=== PATIENT | female | born 1980 | race Caucasian/White ===

== ENCOUNTER → 2018-12-24 13:55 | Outpatient (CLI) | payer OTHER, SELFPAY ==
--- NOTE | 2018-12-24 | DI.MG.S_ITS ---
BILATERAL DIGITAL SCREENING MAMMOGRAM 3D/2D WITH CAD: 12/24/2018 CLINICAL: Routine screening. Baseline exam. Family history of breast cancer. No prior exams were available for comparison. The tissue of both breasts is heterogeneously dense. This may lower the sensitivity of mammography. Current study was also evaluated with a Computer Aided Detection (CAD) system. There is a 0.9 cm oval focal asymmetry in the right breast at 11 o'clock middle depth. There also is possible architectural distortion in the right breast middle depth medial region seen on the craniocaudal view only. No other significant masses, calcifications, or other findings are seen in either breast. IMPRESSION: INCOMPLETE: NEEDS ADDITIONAL IMAGING EVALUATION The 0.9 cm oval focal asymmetry in the right breast at 11 o'clock middle depth is indeterminate. Additional views with possible ultrasound are recommended. The possible architectural distortion in the right breast middle depth medial region seen on the craniocaudal view only is indeterminate. Additional views with possible ultrasound are recommended. This exam was interpreted at Station ID: [id number]. NOTE: For mammograms, a report in lay terms will be sent to the patient. Approximately 15% of breast malignancies will not be visualized mammographically. In the management of a palpable breast mass, a negative mammogram must not discourage biopsy of a clinically suspicious lesion. Electronically Signed By: Jey santiago/flor:12/25/2018 13:22:20 letter sent: Additional Imaging Needed ACR BI-RADS Category 0: Incomplete [id number]
== END ==
PROVIDERS: Family Provider Family Medicine; PCP Family Medicine; Visit Provider Family Medicine
DX: Z12.31 Encounter for screening mammogram for malignant neoplasm of breast (principal); Z80.3 Family history of malignant neoplasm of breast
CPT/HCPCS: 77063; 77067

== ENCOUNTER → 2019-01-20 08:43 | Outpatient (CLI) | payer OTHER, SELFPAY ==
--- NOTE | 2019-01-20 | DI.MG.S_ITS ---
UNILATERAL RIGHT DIGITAL DIAGNOSTIC MAMMOGRAM 3D/2D WITH ADDITIONAL VIEWS: 01/20/2019 CLINICAL: Additional evaluation requested from prior study. Comparison is made to exam dated: 12/24/2018 [facility]. The tissue of right breast is heterogeneously dense. This may lower the sensitivity of mammography. Previously identified 0.9 cm oval focal asymmetry in the superior lateral right breast (described as being at 11 o'clock middle depth on comparison screening mammograms of 12/24/18 but localizes closer to 9-10 o'clock middle depth on additional diagnostic views performed today 01/20/19) persists with additional views. Previously identified possible architectural distortion in the right breast middle depth medial region seen on the craniocaudal view only on comparison screening mammograms of 12/24/18 persists with additional views. IMPRESSION: INCOMPLETE: NEEDS ADDITIONAL IMAGING EVALUATION Previously identified 0.9 cm oval focal asymmetry in the superior lateral right breast (described as being at 11 o'clock middle depth on comparison screening mammograms of 12/24/18 but localizes closer to 9-10 o'clock middle depth on additional diagnostic views performed today 01/20/19) persists with additional views. A targeted ultrasound is recommended for further evaluation, and will be performed immediately following this exam. Previously identified possible architectural distortion in the right breast middle depth medial region seen on the craniocaudal view only on comparison screening mammograms of 12/24/18 persists with additional views. A targeted ultrasound is recommended for further evaluation, and will be performed immediately following this exam. This exam was interpreted at Station ID: [id number]. NOTE: For mammograms, a report in lay terms will be sent to the patient. Approximately 15% of breast malignancies will not be visualized mammographically. In the management of a palpable breast mass, a negative mammogram must not discourage biopsy of a clinically suspicious lesion. Electronically Signed By: Terry Allen M.D. ecl/:01/20/2019 09:54:48 ACR BI-RADS Category 0: Incomplete 3340F
--- NOTE | 2019-01-20 | DI.US.S_ITS ---
LIMITED ULTRASOUND OF RIGHT BREAST: 01/20/2019 CLINICAL: Patient returns today to evaluate a focal asymmetry and architectual distortion in the right breast. Of note, the patient describes a history of medial right breast mastitis while nursing in the past. Comparison is made to exams dated: 01/20/2019 mammogram and 12/24/2018 mammogram - [facility]. Color flow ultrasound of the right breast upper inner, lower inner, and and upper outer quadrants regions was performed. Hagen scale images of the real-time examination were reviewed. There is a 1.0 x 0.8 x 0.5 cm oval circumscribed hypoechoic mass demonstrating increased vascularity in the right breast at 9:30 position 9 cm from the nipple. This appears to correlate with the focal asymmetry described on comparison screening and diagnostic mammography. There is no ultrasound correlate for the architectural distortion within the medial right breast described on comparison screening and diagnostic mammography. IMPRESSION: SUSPICIOUS OF MALIGNANCY 1. No ultrasound correlate for the architectural distortion within the medial right breast described on comparison screening and diagnostic mammography. A tomosynthesis or stereotactic guided biopsy is recommended for further evaluation. 2. 1.0 x 0.8 x 0.5 cm hypoechoic mass demonstrating increased vascularity in the right breast 9:30 position 9 cm from the nipple. This may represent a fibroadenoma or lymph node, but an ultrasound guided biopsy is recommended given the increased vascularity and the medial right breast architectural distortion described above. These results and recommendations were discussed with the patient at the time of the exam by Dr. Allen by telephone at approximately 9:45 am on 01/20/19. This exam was interpreted at Station ID: [id number]. Electronically Signed By: Terry Allen M.D. ecl/:01/20/2019 10:10:06 letter sent: Biopsy Required Ultrasound BI-RADS: 4b Moderate suspicion of malignancy
== END ==
PROVIDERS: Family Provider Family Medicine; PCP Family Medicine; Visit Provider Family Medicine
DX: R92.8 Other abnormal and inconclusive findings on diagnostic imaging of breast (principal); N63.11 Unspecified lump in the right breast, upper outer quadrant; N64.89 Other specified disorders of breast
CPT/HCPCS: 76642; 77065; G0279

== ENCOUNTER 2019-04-11 06:56 | Day surgery (SDC) | payer OTHER, SELFPAY ==
[2019-04-10 08:49] VITALS: BMI 30.7
[2019-04-11] VITALS (9 sets, daily range): BP systolic 110–121; BP diastolic 61–80; PULSE 70–89; RESP 10–17; TEMP 36.6; O2SAT 91–100; BMI 31.1
--- NOTE | 2019-04-11 | DI.MG.S_ITS ---
SPECIMEN: 04/11/2019 CLINICAL: Right breast specimen. Correlation is made to exams dated: 02/16/2019 stereotactic biopsy and 02/16/2019 mammogram - Breast [facility]. The specimen from the OR containes the area of clinical concern, the small biopsy localization clip, and the localization wire placed earlier same day to assist in surgical guidance to the site of lumpectomy. IMPRESSION: SPECIMEN Successful surgical excision of the area of clinical concern. This exam was interpreted at Station ID: [id number]. Tr Avina M.D. [facility]/:04/12/2019 14:04:52
--- NOTE | 2019-04-11 | PATH_ITS ---
[facility] Accession Number: [id number] . 01 Material submitted: . breast - RIGHT BREAST . 01 Clinical history: . SHORT STITCH SUPERIOR, LONG STITCH LATERAL . 01 Diagnosis: Right Breast, Lumpectomy: Breast parenchyma with biopsy site changes/suture granuloma and associated fibrosis/scarring. Background breast with focal pseudoangiomatous hyperplasia, and fibrocystic changes consisting of columnar cell change/columnar cell hyperplasia, focal usual ductal hyperplasia, apocrine metaplasia, microcysts, and stromal fibrosis. Negative for atypia, carcinoma in situ, and malignancy. [facility] 04/14/2019 1025 Local . 01 Electronically signed: . Yoanna Guajardo MD, Pathologist NPI- [id number] . 01 Gross description: . Received in formalin, labeled with the patient's name and right breast lumpectomy. Specimen: Right breast lumpectomy. Weight: 44 grams. Measurement: 7.3 cm medial to lateral, 4.0 to 6.2 cm anterior to posterior, 2.7 cm superior to inferior. Skin Ellipse: Absent. Wire: Present, penetrating at the medial side and terminating at the lateral side. Margins: Anterior-purple; posterior-black; superior-blue; inferior-green; medial-yellow; lateral-orange; previously oriented (short stitch-superior, long stitch-lateral). Sliced: Sectioned from lateral to medial, 14 slices. Approximately 75% of the specimen is submitted. Lesions: A distinct mass is not identified; red-brown hemorrhagic biopsy changes are present within slices 4-7, measuring 2.5 x 1.2 x 1.0 cm overall, 0.2 cm to the superior margin, 1.1 cm to the inferior margin, 1.5 cm to the anterior margin, 4.2 cm to the posterior margin, 1.5 cm to the lateral margin, 3.6 cm to the medial margin. A biopsy clip is not identified. The hemorrhagic area is entirely submitted. Other: The remaining specimen consists of yellow and pale cervantes fibrofatty breast tissue, 40% fibrous, 60% fatty, with occasional fibroglandular densities. No other lesions identified. Fixation Time: The specimen was placed in formalin at 1112 on 04/11/2019 for a total fixation time of 24 hours 1 minute. Summary of Sections: A1: Slice 1, lateral margin, perpendicular, four pieces. A2-3: Slice 2, patient access representative, including anterior and posterior margins, one piece each. A4: Slice 3, including superior, inferior, anterior margins, one piece. A5: Slice 3, patient access representative, including posterior margin, one piece. A6: Slice 4, including superior, inferior, anterior margin, one piece. A7: Slice 4, including posterior margin, one piece. A8-10: Slice 5, trisected and entirely submitted, one piece each. A11-13: Slice 6, [id number] and entirely submitted, one piece each. A14-16: Slice 7, trisected and entirely submitted, one piece each. A17-18: Slice 8, bisected into superior and inferior pieces and entirely submitted, one piece each. A19-20: Slice 9, bisected into superior and inferior pieces and entirely submitted, one piece each. A21: Slice 10, patient access representative, including posterior margin, one piece. A22: Slice 12, patient access representative, including anterior margin, one piece. A23: Slice 14, medial margin, perpendicular, three pieces. ([id number]) Additional sections are submitted on 04/13/2019 at 12:42 p.m; specimen now is entirely submitted. A24-25: Slice 1, perpendicular, multiple pieces. A26: Remainder of slice 2, one piece. A27: Remainder of slice 3, one piece. A28: Remainder of slice 4, one piece. A29: Remainder of slice 10, one piece. A30-31: Slice 11, bisected, one piece each. A32: Remainder of slice 12, one piece. A33-34: Slice 13, bisected, one piece each. A25-37: Slice 14, perpendicular, multiple pieces. ([id number]) /MRV 04/14/2019 0958 Local . 01 Microscopic: . Microcalcifications are not present. Specimen is entirely submitted. . 01 Pathologist provided ICD-10: N64.89 . 01 CPT . 561268 Performed at: 01 [facility] [address] [place] [address] [id number] MD Kris Olguin MD Phone: [phone]
--- NOTE | 2019-04-11 09:30 | DI.MG.S_ITS ---
DIGITAL MAMMOGRAPHY GUIDED WIRE LOCALIZATION RIGHT BREAST WITH POST MAMMOGRAPHIC IMAGING AND RADIOGRAPHIC SPECIMEN IMAGING- POST-NEEDLE BIOPSY: 04/11/2019 CLINICAL: Right breast cancer. Wire localization. Correlation is made to exams dated: 02/16/2019 stereotactic biopsy, 02/16/2019 mammogram - [facility], and 01/20/2019 mammogram [facility]. A wire localization using digital mammography guidance was performed for the concerning marker clip located in the right breast at 3 o'clock posterior depth. This was described on the previous mammography report. The skin was prepped in the usual manner. Local anesthetic was administered to the access site. The localization was approached from the medial aspect. A J-hook wire was inserted adjacent to the marker through an introducer device under digital mammography guidance. A sterile dressing was applied to the access site. Post placement mammographic imaging demonstrates the tip passes through adjacent to the marker. IMPRESSION: WIRE LOCALIZATION Wire localization for the marker clip in the right breast at 3 o'clock posterior depth was successful. The imaged specimen includes the lesion, a biopsy clip, and the distal portion of the localization wire. A specimen radiograph was obtained. This exam was interpreted at Station ID: [id number]. Tr Avina M.D. [facility]/:04/12/2019 14:01:04
--- NOTE | 2019-04-11 09:43 | PM.PREOP ---
Pre-operative Note Interval Note History & Physical reviewed/Exam performed by Physician: Yes Changes to H&P: No
[2019-04-11] MEDS: LACTATED RINGERS 1,000 ML 42 ML IV (09:44)
[2019-04-11] MEDS: CLINDAMYCIN 900 MG/50 ML PIGGYBACK 50 MG IV (09:57)
--- NOTE | 2019-04-11 10:20 | SUR.OPER ---
Supine on padded OR bed, head on pillow, arms secured on padded arm boards at <90 degrees abduction, legs uncrossed, safety belt at thigh, tape over blanket over lower legs.
[2019-04-11] MEDS: BUPIVACAINE 0.25% (PF) VIAL 30 ML INJ (10:31)
--- NOTE | 2019-04-11 11:11 | PM.OP.1 ---
Operative Date/Time/Diagnoses Date of procedure: 04/11/19 Time of procedure: 11:12 Pre-op diagnosis: radial scar Post-op diagnosis: same Procedure & Clinicians Procedure: Right needle-guided lumpectomy Same procedure as scheduled: Yes Indications: 39-year-old female with a right mammographic abnormality who underwent a needle biopsy which demonstrated radial scar at the approximately 3 o'clock position Surgeon: Gil Brand Anesthesia Type: General Operative Notes Findings: The clip and wire within the lumpectomy specimen Specimen(s): other (Right lumpectomy) Estimated Blood Loss (mL): 10 Procedure in detail: The patient underwent needle localized prior to the operation. They were brought to the operating room and placed supine on the table. Bilateral lower extremity compression devices were applied. They were intubated with an LMA. There were prepped and draped in sterile fashion. Time-out was performed to ensure the correct patient procedure necessary equipment within the operating room. A curvilinear incision on the lateral aspect of the right areola was made and subcutaneous tissues were divided. The localizing wire was identified and then brought back within the incision. The end of the wire was encountered within the right media breast tissue. The mass was excised with the wire and clip. Specimen was marked short stitch superior long stitch lateral. Imaging demonstrated that the specimen contained the wire and the associated clip. Subcutaneous tissues were reapproximated with 3 0 Vicryl sutures skin closed with Monocryl followed by application of Dermabond and Steri-Strips. 0.25% bupivacaine was infiltrated into the skin. Complications: none Post-operative Condition: stable Disposition: same day surgery
[2019-04-11] MEDS: KETOROLAC 30 MG/ML VIAL IV (11:26)
[2019-04-11] MEDS: fentaNYL 100 MCG/2 ML INJ IV (11:36)
[2019-04-11] MEDS: OXYCODONE IR 5 MG TABLET PO (12:37)
== END 2019-04-11 12:42 | disposition home or self-care (01) ==
PROVIDERS: Family Provider Family Medicine; PCP Family Medicine; Referring Provider Surgery; Visit Provider Surgery
PROC: (CPT 19301; principal; 2019-04-11 09:45)
DX: L90.5 Scar conditions and fibrosis of skin (principal); N64.89 Other specified disorders of breast
CPT/HCPCS: 19301; 19281; 76098; J0330; J1100; J1885; J2405; J2704; J3010

== ENCOUNTER → 2021-05-15 14:35 | Outpatient (CLI) | payer OTHER, SELFPAY ==
--- NOTE | 2021-05-15 | DI.MG.S_ITS ---
BILATERAL DIGITAL SCREENING MAMMOGRAM 3D/2D WITH CAD: 05/15/2021 CLINICAL: Routine screening. Comparison is made to exams dated: 02/16/2019 mammogram - [facility], 01/20/2019 mammogram, 12/24/2018 mammogram - [facility], and 02/16/2019 stereotactic biopsy - [facility]. The tissue of both breasts is heterogeneously dense. This may lower the sensitivity of mammography. Current study was also evaluated with a Computer Aided Detection (CAD) system. There are benign post operative findings and biopsy clip in the right breast. No significant masses, calcifications, or other findings are seen in either breast. There has been no significant interval change. IMPRESSION: BENIGN There is no mammographic evidence of malignancy. A 1 year screening mammogram is recommended. This exam was interpreted at Station ID: [id number]. NOTE: For mammograms, a report in lay terms will be sent to the patient. Approximately 15% of breast malignancies will not be visualized mammographically. In the management of a palpable breast mass, a negative mammogram must not discourage biopsy of a clinically suspicious lesion. Electronically Signed By: James espinal/flor:05/15/2021 15:27:03 letter sent: Normal Exam ACR BI-RADS Category 2: Benign Finding(s) 3342F
== END ==
PROVIDERS: Family Provider Family Medicine; PCP Family Medicine; Referring Provider Family Medicine; Visit Provider Family Medicine
DX: Z12.31 Encounter for screening mammogram for malignant neoplasm of breast (principal)
CPT/HCPCS: 77063; 77067

== ENCOUNTER → 2022-09-01 15:45 | Outpatient (CLI) | payer OTHER, SELFPAY ==
--- NOTE | 2022-09-01 15:45 | DI.US.S_ITS ---
PROCEDURE: US PELVIC COMPLETE INDICATIONS: MENORRHAGIA WITH IRREGULAR CYCLE TECHNIQUE: Real-time scanning was performed of the pelvic organs, with image documentation. Additional endovaginal scanning was necessary due to incomplete visualization of the adnexal and endometrial structures by transabdominal scanning. COMPARISON: None. FINDINGS: Uterus: Uterus is anteverted and normal in size at 12.4 x 7.8 x 8.0 cm. The myometrium is heterogenous with fibroids. A right intramural/submucosal fibroid measures 6.6 x 5.5 x 6.6 cm. A right anterior intramural fibroid measures 1.8 x 1.6 x 2.4 cm. A mid posterior intramural fibroid measures 2.1 x 2.1 x 2.3 cm. Ovaries: The right ovary is not seen. The left ovary has a normal size and appearance. <<Less than 12 follicles can be seen in each ovary. No adnexal masses are seen. Other: No pathologic free abdominal or pelvic fluid. IMPRESSION: 1. No acute ultrasound abnormality. 2. Multiple fibroids, the largest measuring 6.6 cm. We strive to produce accurate, complete, and clear reports of imaging services. To assist us in improving patient care, this report was composed using standard report templates and voice recognition software. Therefore, it may contain abnormal punctuation, insertions and/or omissions. Occasional wrong-word or sound-alike substitutions may occur. Though we review the report and make efforts to correct it, we do recommend that the report be read carefully in proper context to recognize any text inaccuracies. Dictated by: Wilfrid Sandoval M.D. on 09/01/2022 at 16:41 Approved by: Wilfrid Sandoval M.D. on 09/01/2022 at 16:45
== END ==
PROVIDERS: Family Provider Family Medicine; PCP Family Medicine; Referring Provider Family Medicine; Visit Provider Family Medicine
DX: N92.1 Excessive and frequent menstruation with irregular cycle (principal); D25.1 Intramural leiomyoma of uterus
CPT/HCPCS: 76830; 76856

== ENCOUNTER → 2022-11-05 13:26 | Outpatient (CLI) | payer OTHER, SELFPAY ==
[2022-11-05 14:28] LABS: Add Manual Diff / Slide Review NO; Basophils Absolute Auto 0 /uL (0-100); Basophils Percent Auto 0.7 % (0-2); Eosinophils Absolute Auto 100 /uL (0-450); Eosinophils Percent Auto 2.5 % (2-4); Hematocrit 37.5 % (36-46); Hemoglobin 12.7 g/dL (12.0-16.0); Lymphocytes Absolute Auto 1200 /uL (1100-4500); Lymphocytes Percent Auto 21.3 % (25-40); Mean Corpuscular HGB Conc 33.9 % (30-36); Mean Corpuscular Hemoglobin 29.3 PG (26-34); Mean Corpuscular Volume 86.4 fL (80-100); Monocytes Absolute Auto 500 /uL (0-900); Monocytes Percent Auto 9.1 % (3-14); Neutrophils Absolute Auto 3800 /uL (1500-7000); Neutrophils Percent Auto 66.4 % (50-75); Platelet Count 267 X10^3/uL (150-400); Red Blood Cell Count 4.34 X10^6/uL (4.0-5.2); Red Cell Distribution Width 13.2 % (11.6-14.8); White Blood Cell Count 5.7 X10^3/uL (4.5-11.0)
[2022-11-05 15:30] LABS: Testosterone 40.5 ng/dL (5.71-77.0)
== END ==
PROVIDERS: Family Provider Family Medicine; PCP Family Medicine; Referring Provider Student in an Organized Health Care Education/Training Program; Visit Provider Student in an Organized Health Care Education/Training Program
DX: N93.9 Abnormal uterine and vaginal bleeding, unspecified (principal); D25.9 Leiomyoma of uterus, unspecified; D50.9 Iron deficiency anemia, unspecified
CPT/HCPCS: 36415; 84403; 85025

== ENCOUNTER → 2024-06-09 12:43 | Outpatient (CLI) | payer OTHER, SELFPAY ==
--- NOTE | 2024-06-09 12:44 | DI.US.S_ITS ---
PROCEDURE: US ABDOMEN LIMITED INDICATIONS: Elevated LFTS TECHNIQUE: Real-time focused scanning was performed of the abdomen, with image documentation. COMPARISON: None. FINDINGS: Liver measures 16 cm. Increased hepatic echogenicity. Main portal vein is patent. The gallbladder is packed with stones. No sonographic Barker sign. Nondilated CBD at 3 mm. Mild wall thickening at 3-4 mm. Partially visualized pancreas is unremarkable. IMPRESSION: Cholelithiasis with mild wall thickening at 3-4 mm. No sonographic Barker sign. No biliary ductal dilation. Increased hepatic echogenicity, nonspecific, most commonly due to steatosis Dictated by: Kalpesh Gong M.D. on 06/10/2024 at 17:41 Approved by: Kalpesh Gong M.D. on 06/10/2024 at 17:42
== END ==
PROVIDERS: Family Provider Family Medicine; PCP Family Medicine; Referring Provider Family Medicine; Visit Provider Family Medicine
DX: K80.20 Calculus of gallbladder without cholecystitis without obstruction (principal); R79.89 Other specified abnormal findings of blood chemistry
CPT/HCPCS: 76705